=== PATIENT | female | born 1990 | race Hispanic/Latino ===

== ENCOUNTER 2018-06-27 06:19 | Emergency (ER) | payer OTHER ==
[2018-06-27 06:42] VITALS: BP 118/77
[2018-06-27] MEDS ORDERED: FLEXERIL PO ONE (07:34)
[2018-06-27] MEDS ORDERED: TORADOL IM ONE (07:34)
[2018-06-27] MEDS ORDERED: DELTASONE PO ONE (07:34)
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
--- NOTE | 2018-06-27 09:02 | XRay Report ---
BILATERAL RIBS: History: Chest pain. Routine views of the rib cage demonstrate normal mineralization with no significant contour abnormalities, fractures or destructive lesions. PA view of the chest demonstrates no underlying cardiopulmonary abnormalities, fluid or pneumothorax. IMPRESSION: Normal bilateral ribs.
== END 2018-06-27 09:31 | disposition home or self-care (01) ==
LOC: ED 06:19
DX: M79.18 Myalgia, other site (principal); R07.81 Pleurodynia; J45.909 Unspecified asthma, uncomplicated; V49.49XA Driver injured in collision with other motor vehicles in traffic accident, initial encounter; Y93.89 Activity, other specified; Y92.488 Other paved roadways as the place of occurrence of the external cause; Y99.8 Other external cause status
CPT/HCPCS: 71110; 96372; 99283; J1885; J7512

== ENCOUNTER 2018-07-07 04:28 | Inpatient (IN) | payer SELFPAY ==
[~2018-07-07 04:28] MED LIST: NACL 0.9% 1000 ML 1,000 ML IV SCH
[2018-07-07] MEDS ORDERED: NACL 0.9% 1000 ML 1,000 ML IV ONE ×3 (05:07→19:06)
[2018-07-07] MEDS ORDERED: LEVALBUTEROL IH ONE (05:10)
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
[2018-07-07 05:45] LABS: Bilirubin,Urine NEG (Negative); Blood,Urine NEG (Negative); Color,Urine Yellow (Yellow); Mucus,Urine FEW /HPF; Urobilinogen,Urine < 2.0 mg/dL (<2.0)
[2018-07-07 05:54] LABS: Hemoglobin 12.2 gm/dl (10.1-14.3); Mean Corpuscular HGB Conc 31 % (30-34); Mean Corpuscular Volume 89 fl (79-97); Platelet Count 377 K/mm3 (140-440); Red Cell Distribution Width 14.4 % (13.2-15.2)
[2018-07-07 05:57] LABS: BUN/Creatinine Ratio 3; Blood Urea Nitrogen 3 mg/dL (7-17); Calcium 9.3 mg/dL (8.4-10.2); Hemolysis Index 0
[2018-07-07] MEDS ORDERED: ATIVAN IV ONE (06:15)
[2018-07-07] MEDS ORDERED: D50W (25GM) Syringe IV PRN (06:15)
[2018-07-07] MEDS ORDERED: NACL 0.9% 1000 ML IV ONE (06:17)
[2018-07-07] MEDS ORDERED: ROCEPHIN/NS 1 GM/50 ML 1 GM/50 ML BAG IV ONE (06:18)
[2018-07-07] MEDS ORDERED: ATIVAN ONE (06:19)
--- NOTE | 2018-07-07 06:25 | XRay Report ---
FINAL REPORT PROCEDURE: XR CHEST 1V AP TECHNIQUE: Chest radiograph anteroposterior view. CPT 52500 HISTORY: SOB COMPARISON: No prior studies are available for comparison. FINDINGS: Heart: Normal. Mediastinum/Vessels: Normal. Lungs/Pleural space: There is a right perihilar infiltrate. The lungs are expanded. There are no effu sions or pneumothoraces.. Bony thorax: No acute osseous abnormality. Life support devices: None. IMPRESSION: The heart size is normal.. There is a right perihilar infiltrate. The lungs are expanded. There are no effusions or pneumothorac es..
[2018-07-07] MEDS ORDERED: SODIUM BICARBONATE IV ONE ×2 (06:35)
[2018-07-07] MEDS ORDERED: SODIUM BICARBONATE 150 MEQ in D5W 1,000 ML IV ONE ×2 (06:35→17:00)
[2018-07-07] MEDS: HumuLIN R 100 UNITS in NACL 0.9% 99 ML IV SCH ×2 (06:47→10:52)
[2018-07-07] MEDS ORDERED: MAXIPIME/NS 2 GM/100 ML 2 GM/100 ML BAG IV ONE (06:50)
--- NOTE | 2018-07-07 07:07 | Cat Scan Report ---
FINAL REPORT PROCEDURE: CT ANGIO CHEST TECHNIQUE: Computerized tomographic angiography of the chest was performed after the IV injection of iodinated nonionic contrast including image processing. The image data was postprocessed using 2-dim ensional multiplanar reformatted (MPR) and 3-dimensional (MIP and/or volume rendered) techniques. HISTORY: SOB, elevated dimer COMPARISON: No prior studies are available for comparison. FINDINGS: Heart and pericardium: Normal. Thoracic aorta: There is no thoracic aortic aneurysm or dissection.. Pulmonary vasculature: There is no pulmonary embolism.. Lymph nodes: There is reactive right hilar adenopathy. Mass considered unlikely but not excluded.. Lungs: There are right perihilar infiltrates suggesting focal pneumonitis. Right hilar mass considere d less likely but not excluded. Follow-up may be indicated. The lungs are expanded.. Pleural space: There is no pneumothorax. There is no pleural effusion.. Musculoskeletal structures: No significant abnormality. Upper abdominal structures: No significant abnormality. IMPRESSION: The heart size is normal. There is no thoracic aortic aneurysm or dissection.. There is no pulmonary embolism.. There is reactive right hilar adenopathy. Mass considered unlikely but not excluded.. There are right perihilar infiltrates suggesting focal pneumonitis. Right hilar mass considered less likely but not excluded. Follow-up may be indicated. The lungs are expanded.. There is no pneumothorax. There is no pleural effusion..
[2018-07-07 07:15] LABS: Anisocytosis 1+; Band Neutrophils # (Manual) 3.5 K/mm3; Basophils % (Manual) 0 % (0.0-1.8); Myelocytes # (Manual) 0.8 K/mm3; Total Cells Counted 100
[2018-07-07 07:45] LABS: BUN/Creatinine Ratio 4; Blood Urea Nitrogen 3 mg/dL (7-17); Calcium 8.7 mg/dL (8.4-10.2); Hemolysis Index 6
[2018-07-07] MEDS ORDERED: NACL 0.9% 1000 ML 1,000 ML ONE ×2 (08:24→17:39)
[2018-07-07 08:45] LABS: BUN/Creatinine Ratio 4; Blood Urea Nitrogen 3 mg/dL (7-17); Calcium 8.7 mg/dL (8.4-10.2); Hemolysis Index 20
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
[2018-07-07 10:46] LABS: BUN/Creatinine Ratio 3; Blood Urea Nitrogen 2 mg/dL (7-17); Calcium 8.6 mg/dL (8.4-10.2); Hemolysis Index 9
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
[2018-07-07] MEDS ORDERED: NACL 0.9% 1000 ML 1,000 ML IV SCH (12:00)
[2018-07-07] MEDS ORDERED: SODIUM BICARBONATE 50 MEQ in NACL 0.9% 1000 ML 1,000 ML IV SCH (12:00)
[2018-07-07 12:58] LABS: BUN/Creatinine Ratio 5; Blood Urea Nitrogen 3 mg/dL (7-17); Calcium 7.9 mg/dL (8.4-10.2); Hemolysis Index 6
[2018-07-07] MEDS ORDERED: ZITHROMAX 500 MG in NACL 0.9% 250ML 250 ML IV SCH (13:00)
[2018-07-07] MEDS: D5W/0.45% NACL/KCL 20 MEQ 20 MEQ/1,000 ML BAG IV SCH ×2 (13:54→22:06)
[2018-07-07] MEDS ORDERED: TYLENOL ONE (15:26)
[2018-07-07] MEDS ORDERED: KCL 20 MEQ in D5NS 0.2% 1,000 ML IV SCH (16:00)
[2018-07-07] MEDS: DUONEB *Not for PRN Use IH SCH ×2 (16:17→19:23)
[2018-07-07 17:53] LABS: BUN/Creatinine Ratio 4; Blood Urea Nitrogen 2 mg/dL (7-17); Calcium 7.7 mg/dL (8.4-10.2); Hemolysis Index 3
[2018-07-07] MEDS ORDERED: K-DUR PO SCH (19:00)
[2018-07-07] MEDS ORDERED: K-DUR PO ONE (19:34)
[2018-07-07] MEDS: KCL 10MEQ/100ML 10 MEQ/100 ML BAG IV SCH ×3 (20:44→23:15)
[2018-07-07 22:53] LABS: BUN/Creatinine Ratio 4; Blood Urea Nitrogen 2 mg/dL (7-17); Calcium 7.5 mg/dL (8.4-10.2); Hemolysis Index 44
[2018-07-08] MEDS: TYLENOL PO PRN ×3 (01:21→22:15)
[2018-07-08] MEDS: DUONEB *Not for PRN Use IH SCH ×5 (02:19→20:22)
[2018-07-08] MEDS ORDERED: NACL 0.9% 1000 ML 1,000 ML IV ONE (03:31)
[2018-07-08 05:19] LABS: Hematocrit 32.4 % (30.3-42.9); Hemoglobin 10.4 gm/dl (10.1-14.3); Mean Corpuscular HGB Conc 32 % (30-34); Mean Corpuscular Volume 86 fl (79-97); Platelet Count 259 K/mm3 (140-440); Red Blood Count 3.76 M/mm3 (3.65-5.03); Red Cell Distribution Width 13.5 % (13.2-15.2)
[2018-07-08 05:42] LABS: BUN/Creatinine Ratio 3; Blood Urea Nitrogen < 1 mg/dL (7-17); Hemolysis Index 21
[2018-07-08] MEDS: D5W/0.45% NACL/KCL 20 MEQ 20 MEQ/1,000 ML BAG IV SCH (06:20)
[2018-07-08 06:53] LABS: Band Neutrophils # (Manual) 3.7 K/mm3; Basophils % (Manual) 0 % (0.0-1.8); Eosinophils % (Manual) 0 % (0.0-4.3); Total Cells Counted 100
[2018-07-08 06:54] LABS: Anisocytosis 1+; Platelet Estimate Consistent w Auto
[2018-07-08] MEDS ORDERED: K-DUR PO ONE ×2 (08:00)
[2018-07-08] MEDS ORDERED: ROCEPHIN/NS 1 GM/50 ML 1 GM/50 ML BAG IV SCH (10:00)
--- NOTE | 2018-07-08 12:00 | Progress Note ---
Assessment and Plan DKA - -admitted to ICU, placed on DKA protocol - placed on insulin drip and monitored blood glucose every hour - given IV fluid hydration with bicarbonate drip due to severe acidosis - BG much improved today, will start on diet and will stop insulin drip, transitioned to subqu insulin SIRS, source of infection unknown - cont to spike fever, change abx to vanc and zosyn Severe hypokalemia and hypomagnesemia - replete, and monitor Dvt px, lovenox Subjective Date of service: 07/08/18 Interval history: pt seen and examined spiked fever this am wants to eat, denies chest pain, still has cough Objective - Constitutional Vitals: Vital Signs - 12hr 07/08/18 07/08/18 07/08/18 01:00 01:21 02:21 Temperature 103.8 F H Pulse Rate Pulse Rate [ 126 H Bilateral Lower Lobe] Respiratory 20 Rate Respiratory 24 Rate [Bilateral Lower Lobe] Blood Pressure O2 Sat by Pulse Oximetry 07/08/18 07/08/18 07/08/18 02:36 03:07 04:18 Temperature 102.8 F H Pulse Rate 130 H Pulse Rate [ 127 H Bilateral Lower Lobe] Respiratory 22 Rate Respiratory 24 Rate [Bilateral Lower Lobe] Blood Pressure 119/76 O2 Sat by Pulse 96 Oximetry 07/08/18 07/08/18 07/08/18 04:20 04:22 04:23 Temperature Pulse Rate 131 H 129 H 130 H Pulse Rate [ Bilateral Lower Lobe] Respiratory 21 19 19 Rate Respiratory Rate [Bilateral Lower Lobe] Blood Pressure 119/76 119/76 119/76 O2 Sat by Pulse 96 97 95 Oximetry 07/08/18 07/08/18 07/08/18 04:24 04:26 04:27 Temperature Pulse Rate 131 H 135 H 136 H Pulse Rate [ Bilateral Lower Lobe] Respiratory 17 20 20 Rate Respiratory Rate [Bilateral Lower Lobe] Blood Pressure 119/76 119/76 119/76 O2 Sat by Pulse 95 94 96 Oximetry 07/08/18 07/08/18 07/08/18 04:28 04:35 04:36 Temperature Pulse Rate 137 H 136 H 135 H Pulse Rate [ Bilateral Lower Lobe] Respiratory 19 19 23 Rate Respiratory Rate [Bilateral Lower Lobe] Blood Pressure 119/76 119/76 119/76 O2 Sat by Pulse 95 94 97 Oximetry 07/08/18 07/08/18 07/08/18 04:38 04:40 04:42 Temperature Pulse Rate 132 H 131 H 130 H Pulse Rate [ Bilateral Lower Lobe] Respiratory 21 17 24 Rate Respiratory Rate [Bilateral Lower Lobe] Blood Pressure 119/76 119/76 119/76 O2 Sat by Pulse 97 99 97 Oximetry 07/08/18 07/08/18 07/08/18 04:44 04:46 04:48 Temperature Pulse Rate 131 H 130 H 129 H Pulse Rate [ Bilateral Lower Lobe] Respiratory 21 24 24 Rate Respiratory Rate [Bilateral Lower Lobe] Blood Pressure 119/76 119/76 119/76 O2 Sat by Pulse 98 100 99 Oximetry 07/08/18 07/08/18 07/08/18 04:50 04:52 04:54 Temperature Pulse Rate 130 H 129 H 129 H Pulse Rate [ Bilateral Lower Lobe] Respiratory 26 H 24 28 H Rate Respiratory Rate [Bilateral Lower Lobe] Blood Pressure 119/76 119/76 119/76 O2 Sat by Pulse 97 98 99 Oximetry 07/08/18 07/08/18 07/08/18 04:56 04:58 05:00 Temperature Pulse Rate 128 H 128 H 129 H Pulse Rate [ Bilateral Lower Lobe] Respiratory 28 H 30 H 25 H Rate Respiratory Rate [Bilateral Lower Lobe] Blood Pressure 119/76 119/76 109/66 O2 Sat by Pulse 99 99 98 Oximetry 07/08/18 07/08/18 07/08/18 05:02 05:04 05:06 Temperature Pulse Rate 127 H 128 H 127 H Pulse Rate [ Bilateral Lower Lobe] Respiratory 27 H 30 H 20 Rate Respiratory Rate [Bilateral Lower Lobe] Blood Pressure 109/66 109/66 109/66 O2 Sat by Pulse 98 99 98 Oximetry 07/08/18 07/08/18 07/08/18 05:08 05:10 05:12 Temperature Pulse Rate 125 H 127 H 128 H Pulse Rate [ Bilateral Lower Lobe] Respiratory 22 21 24 Rate Respiratory Rate [Bilateral Lower Lobe] Blood Pressure 109/66 109/66 109/66 O2 Sat by Pulse 98 98 97 Oximetry 07/08/18 07/08/18 07/08/18 05:14 05:16 05:18 Temperature Pulse Rate 129 H 128 H 126 H Pulse Rate [ Bilateral Lower Lobe] Respiratory 22 21 21 Rate Respiratory Rate [Bilateral Lower Lobe] Blood Pressure 109/66 109/66 109/66 O2 Sat by Pulse 98 97 97 Oximetry 07/08/18 07/08/18 07/08/18 05:20 05:22 05:24 Temperature Pulse Rate 139 H 136 H 133 H Pulse Rate [ Bilateral Lower Lobe] Respiratory 25 H 27 H 24 Rate Respiratory Rate [Bilateral Lower Lobe] Blood Pressure 109/66 109/66 109/66 O2 Sat by Pulse 98 96 98 Oximetry 07/08/18 07/08/18 07/08/18 05:26 05:28 05:30 Temperature Pulse Rate 132 H 131 H 131 H Pulse Rate [ Bilateral Lower Lobe] Respiratory 24 24 27 H Rate Respiratory Rate [Bilateral Lower Lobe] Blood Pressure 109/66 109/66 110/68 O2 Sat by Pulse 98 99 98 Oximetry 07/08/18 07/08/18 07/08/18 05:32 05:34 05:36 Temperature Pulse Rate 131 H 130 H 129 H Pulse Rate [ Bilateral Lower Lobe] Respiratory 31 H 26 H 25 H Rate Respiratory Rate [Bilateral Lower Lobe] Blood Pressure 110/68 110/68 110/68 O2 Sat by Pulse 98 98 98 Oximetry 07/08/18 07/08/18 07/08/18 05:38 05:40 05:42 Temperature Pulse Rate 128 H 129 H 130 H Pulse Rate [ Bilateral Lower Lobe] Respiratory 21 26 H 28 H Rate Respiratory Rate [Bilateral Lower Lobe] Blood Pressure 110/68 110/68 110/68 O2 Sat by Pulse 99 98 98 Oximetry 07/08/18 07/08/18 07/08/18 05:44 05:46 05:48 Temperature Pulse Rate 130 H 131 H 129 H Pulse Rate [ Bilateral Lower Lobe] Respiratory 23 24 26 H Rate Respiratory Rate [Bilateral Lower Lobe] Blood Pressure 110/68 110/68 110/68 O2 Sat by Pulse 96 97 97 Oximetry 07/08/18 07/08/18 07/08/18 05:50 05:52 05:54 Temperature Pulse Rate 130 H 135 H 134 H Pulse Rate [ Bilateral Lower Lobe] Respiratory 26 H 17 23 Rate Respiratory Rate [Bilateral Lower Lobe] Blood Pressure 110/68 110/68 110/68 O2 Sat by Pulse 97 96 97 Oximetry 07/08/18 07/08/18 07/08/18 05:56 05:58 06:00 Temperature Pulse Rate 131 H 130 H 131 H Pulse Rate [ Bilateral Lower Lobe] Respiratory 30 H 26 H 26 H Rate Respiratory Rate [Bilateral Lower Lobe] Blood Pressure 110/68 110/68 111/67 O2 Sat by Pulse 97 99 Oximetry 07/08/18 07/08/18 07/08/18 06:02 06:04 06:06 Temperature Pulse Rate 134 H 132 H 131 H Pulse Rate [ Bilateral Lower Lobe] Respiratory 28 H 24 30 H Rate Respiratory Rate [Bilateral Lower Lobe] Blood Pressure 111/67 111/67 111/67 O2 Sat by Pulse 97 97 97 Oximetry 07/08/18 07/08/18 07/08/18 06:08 06:10 06:12 Temperature Pulse Rate 129 H 129 H 130 H Pulse Rate [ Bilateral Lower Lobe] Respiratory 27 H 25 H 25 H Rate Respiratory Rate [Bilateral Lower Lobe] Blood Pressure 111/67 111/67 111/67 O2 Sat by Pulse 97 97 97 Oximetry 07/08/18 07/08/18 07/08/18 06:14 06:16 06:18 Temperature Pulse Rate 130 H 132 H 131 H Pulse Rate [ Bilateral Lower Lobe] Respiratory 26 H 26 H 23 Rate Respiratory Rate [Bilateral Lower Lobe] Blood Pressure 111/67 111/67 111/67 O2 Sat by Pulse 97 97 97 Oximetry 07/08/18 07/08/18 07/08/18 06:20 06:22 06:24 Temperature Pulse Rate 131 H 130 H 129 H Pulse Rate [ Bilateral Lower Lobe] Respiratory 25 H 25 H 24 Rate Respiratory Rate [Bilateral Lower Lobe] Blood Pressure 111/67 111/67 111/67 O2 Sat by Pulse 98 97 97 Oximetry 07/08/18 07/08/18 07/08/18 06:26 06:28 06:30 Temperature Pulse Rate 128 H 134 H 132 H Pulse Rate [ Bilateral Lower Lobe] Respiratory 21 25 H 23 Rate Respiratory Rate [Bilateral Lower Lobe] Blood Pressure 111/67 111/67 117/68 O2 Sat by Pulse 96 97 96 Oximetry 07/08/18 07/08/18 07/08/18 06:32 06:34 06:36 Temperature Pulse Rate 130 H 132 H 128 H Pulse Rate [ Bilateral Lower Lobe] Respiratory 28 H 25 H 22 Rate Respiratory Rate [Bilateral Lower Lobe] Blood Pressure 117/68 117/68 117/68 O2 Sat by Pulse 97 96 98 Oximetry 07/08/18 07/08/18 07/08/18 06:38 06:40 06:42 Temperature Pulse Rate 129 H 131 H 129 H Pulse Rate [ Bilateral Lower Lobe] Respiratory 29 H 23 22 Rate Respiratory Rate [Bilateral Lower Lobe] Blood Pressure 117/68 117/68 117/68 O2 Sat by Pulse 97 97 97 Oximetry 07/08/18 07/08/18 07/08/18 06:44 06:46 06:48 Temperature Pulse Rate 128 H 128 H 129 H Pulse Rate [ Bilateral Lower Lobe] Respiratory 24 23 27 H Rate Respiratory Rate [Bilateral Lower Lobe] Blood Pressure 117/68 117/68 117/68 O2 Sat by Pulse 97 97 96 Oximetry 07/08/18 07/08/18 07/08/18 06:50 06:52 06:54 Temperature Pulse Rate 128 H 129 H 133 H Pulse Rate [ Bilateral Lower Lobe] Respiratory 23 22 16 Rate Respiratory Rate [Bilateral Lower Lobe] Blood Pressure 117/68 117/68 117/68 O2 Sat by Pulse 98 97 96 Oximetry 07/08/18 07/08/18 07/08/18 06:56 06:58 07:00 Temperature Pulse Rate 133 H 131 H 132 H Pulse Rate [ Bilateral Lower Lobe] Respiratory 22 24 23 Rate Respiratory Rate [Bilateral Lower Lobe] Blood Pressure 117/68 117/68 116/68 O2 Sat by Pulse 96 96 Oximetry 07/08/18 07/08/18 07/08/18 07:02 07:04 07:06 Temperature Pulse Rate 134 H 131 H 130 H Pulse Rate [ Bilateral Lower Lobe] Respiratory 25 H 23 22 Rate Respiratory Rate [Bilateral Lower Lobe] Blood Pressure 111/67 111/67 111/67 O2 Sat by Pulse 97 97 96 Oximetry 07/08/18 07/08/18 07/08/18 07:08 07:10 07:12 Temperature Pulse Rate 131 H 129 H 128 H Pulse Rate [ Bilateral Lower Lobe] Respiratory 21 22 21 Rate Respiratory Rate [Bilateral Lower Lobe] Blood Pressure 111/67 111/67 111/67 O2 Sat by Pulse 97 97 96 Oximetry 07/08/18 07/08/18 07/08/18 07:14 07:16 07:18 Temperature Pulse Rate 130 H 131 H 128 H Pulse Rate [ Bilateral Lower Lobe] Respiratory 24 26 H 24 Rate Respiratory Rate [Bilateral Lower Lobe] Blood Pressure 111/67 111/67 111/67 O2 Sat by Pulse 98 97 97 Oximetry 07/08/18 07/08/18 07/08/18 07:20 07:22 07:24 Temperature Pulse Rate 129 H 127 H 132 H Pulse Rate [ Bilateral Lower Lobe] Respiratory 25 H 25 H 20 Rate Respiratory Rate [Bilateral Lower Lobe] Blood Pressure 111/67 111/67 111/67 O2 Sat by Pulse 97 97 97 Oximetry 07/08/18 07/08/18 07/08/18 07:52 08:00 11:52 Temperature 102.8 F H 99.5 F Pulse Rate Pulse Rate [ 138 H Bilateral Lower Lobe] Respiratory Rate Respiratory 20 Rate [Bilateral Lower Lobe] Blood Pressure O2 Sat by Pulse Oximetry General appearance: Present: no acute distress, well-nourished - EENT Eyes: PERRL, EOM intact ENT: hearing intact, clear oral mucosa Ears: bilateral: normal - Neck Neck: supple, normal ROM - Respiratory Respiratory effort: normal Respiratory: bilateral: CTA - Cardiovascular Rhythm: regular Heart Sounds: Present: S1 & S2. Absent: gallop, rub Extremities: pulses intact, No edema, normal color, Full ROM - Gastrointestinal General gastrointestinal: Present: soft, non-tender, non-distended, normal bowel sounds - Integumentary Integumentary: clear, warm, dry - Musculoskeletal Musculoskeletal: 1, strength equal bilaterally - Neurologic Neurologic: moves all extremities - Psychiatric Psychiatric: memory intact, appropriate mood/affect, intact judgment & insight - Labs CBC & Chem 7: 07/09/18 04:25 07/09/18 04:25 Labs: Abnormal lab results 07/07/18 07/07/18 07/07/18 Range/Units 12:02 12:16 13:09 WBC (4.5-11.0) K/mm3 Lymphocytes % (Manual) (13.4-35.0) % Monocytes % (Manual) (0.0-7.3) % Lymphocytes # (Manual) (1.2-5.4) K/mm3 Monocytes # (Manual) (0.0-0.8) K/mm3 POC ABG pCO2 (35-45) POC ABG pO2 (80-105) Potassium (3.6-5.0) mmol/L Chloride 114.3 H (98-107) mmol/L Carbon Dioxide (22-30) mmol/L BUN 3 L (7-17) mg/dL Creatinine 0.6 L (0.7-1.2) mg/dL Glucose 153 H (65-100) mg/dL POC Glucose 268 H 197 H (70-105) Calcium 7.9 L (8.4-10.2) mg/dL Magnesium (1.7-2.3) mg/dL 07/07/18 07/07/18 07/07/18 Range/Units 14:29 16:33 16:36 WBC (4.5-11.0) K/mm3 Lymphocytes % (Manual) (13.4-35.0) % Monocytes % (Manual) (0.0-7.3) % Lymphocytes # (Manual) (1.2-5.4) K/mm3 Monocytes # (Manual) (0.0-0.8) K/mm3 POC ABG pCO2 16.5 L (35-45) POC ABG pO2 (80-105) Potassium (3.6-5.0) mmol/L Chloride (98-107) mmol/L Carbon Dioxide (22-30) mmol/L BUN (7-17) mg/dL Creatinine (0.7-1.2) mg/dL Glucose (65-100) mg/dL POC Glucose 144 H 208 H (70-105) Calcium (8.4-10.2) mg/dL Magnesium (1.7-2.3) mg/dL 07/07/18 07/07/18 07/07/18 Range/Units 16:46 17:34 18:50 WBC (4.5-11.0) K/mm3 Lymphocytes % (Manual) (13.4-35.0) % Monocytes % (Manual) (0.0-7.3) % Lymphocytes # (Manual) (1.2-5.4) K/mm3 Monocytes # (Manual) (0.0-0.8) K/mm3 POC ABG pCO2 (35-45) POC ABG pO2 (80-105) Potassium 2.4 L* D (3.6-5.0) mmol/L Chloride 107.3 H (98-107) mmol/L Carbon Dioxide 12 L D (22-30) mmol/L BUN 2 L (7-17) mg/dL Creatinine 0.5 L (0.7-1.2) mg/dL Glucose 208 H (65-100) mg/dL POC Glucose 217 H 202 H (70-105) Calcium 7.7 L (8.4-10.2) mg/dL Magnesium (1.7-2.3) mg/dL 02/02/19 02/02/19 02/02/19 Range/Units 19:51 21:05 21:59 WBC (4.5-11.0) K/mm3 Lymphocytes % (Manual) (13.4-35.0) % Monocytes % (Manual) (0.0-7.3) % Lymphocytes # (Manual) (1.2-5.4) K/mm3 Monocytes # (Manual) (0.0-0.8) K/mm3 POC ABG pCO2 (35-45) POC ABG pO2 (80-105) Potassium (3.6-5.0) mmol/L Chloride (98-107) mmol/L Carbon Dioxide (22-30) mmol/L BUN (7-17) mg/dL Creatinine (0.7-1.2) mg/dL Glucose (65-100) mg/dL POC Glucose 199 H 169 H 179 H (70-105) Calcium (8.4-10.2) mg/dL Magnesium (1.7-2.3) mg/dL 07/07/18 07/07/18 07/08/18 Range/Units 22:12 23:12 00:05 WBC (4.5-11.0) K/mm3 Lymphocytes % (Manual) (13.4-35.0) % Monocytes % (Manual) (0.0-7.3) % Lymphocytes # (Manual) (1.2-5.4) K/mm3 Monocytes # (Manual) (0.0-0.8) K/mm3 POC ABG pCO2 (35-45) POC ABG pO2 (80-105) Potassium 2.9 L* D (3.6-5.0) mmol/L Chloride 107.1 H (98-107) mmol/L Carbon Dioxide 12 L (22-30) mmol/L BUN 2 L (7-17) mg/dL Creatinine 0.5 L (0.7-1.2) mg/dL Glucose 165 H (65-100) mg/dL POC Glucose 191 H 192 H (70-105) Calcium 7.5 L (8.4-10.2) mg/dL Magnesium (1.7-2.3) mg/dL 07/08/18 07/08/18 07/08/18 Range/Units 01:23 02:05 02:42 WBC (4.5-11.0) K/mm3 Lymphocytes % (Manual) (13.4-35.0) % Monocytes % (Manual) (0.0-7.3) % Lymphocytes # (Manual) (1.2-5.4) K/mm3 Monocytes # (Manual) (0.0-0.8) K/mm3 POC ABG pCO2 27.4 L (35-45) POC ABG pO2 165 H (80-105) Potassium (3.6-5.0) mmol/L Chloride (98-107) mmol/L Carbon Dioxide (22-30) mmol/L BUN (7-17) mg/dL Creatinine (0.7-1.2) mg/dL Glucose (65-100) mg/dL POC Glucose 165 H 112 H (70-105) Calcium (8.4-10.2) mg/dL Magnesium (1.7-2.3) mg/dL 07/08/18 07/08/18 07/08/18 Range/Units 03:03 04:20 04:40 WBC 11.1 H (4.5-11.0) K/mm3 Lymphocytes % (Manual) 8.0 L (13.4-35.0) % Monocytes % (Manual) 12.0 H (0.0-7.3) % Lymphocytes # (Manual) 0.9 L (1.2-5.4) K/mm3 Monocytes # (Manual) 1.3 H (0.0-0.8) K/mm3 POC ABG pCO2 (35-45) POC ABG pO2 (80-105) Potassium (3.6-5.0) mmol/L Chloride (98-107) mmol/L Carbon Dioxide (22-30) mmol/L BUN (7-17) mg/dL Creatinine (0.7-1.2) mg/dL Glucose (65-100) mg/dL POC Glucose 119 H 144 H (70-105) Calcium (8.4-10.2) mg/dL Magnesium (1.7-2.3) mg/dL 07/08/18 07/08/18 07/08/18 Range/Units 04:40 05:49 06:56 WBC (4.5-11.0) K/mm3 Lymphocytes % (Manual) (13.4-35.0) % Monocytes % (Manual) (0.0-7.3) % Lymphocytes # (Manual) (1.2-5.4) K/mm3 Monocytes # (Manual) (0.0-0.8) K/mm3 POC ABG pCO2 (35-45) POC ABG pO2 (80-105) Potassium 2.7 L* (3.6-5.0) mmol/L Chloride 108.5 H (98-107) mmol/L Carbon Dioxide 15 L (22-30) mmol/L BUN < 1 L (7-17) mg/dL Creatinine 0.4 L (0.7-1.2) mg/dL Glucose 139 H (65-100) mg/dL POC Glucose 142 H 162 H (70-105) Calcium 7.0 L (8.4-10.2) mg/dL Magnesium (1.7-2.3) mg/dL 07/08/18 Range/Units 08:20 WBC (4.5-11.0) K/mm3 Lymphocytes % (Manual) (13.4-35.0) % Monocytes % (Manual) (0.0-7.3) % Lymphocytes # (Manual) (1.2-5.4) K/mm3 Monocytes # (Manual) (0.0-0.8) K/mm3 POC ABG pCO2 (35-45) POC ABG pO2 (80-105) Potassium (3.6-5.0) mmol/L Chloride (98-107) mmol/L Carbon Dioxide (22-30) mmol/L BUN (7-17) mg/dL Creatinine (0.7-1.2) mg/dL Glucose (65-100) mg/dL POC Glucose (70-105) Calcium (8.4-10.2) mg/dL Magnesium 1.10 L (1.7-2.3) mg/dL
[2018-07-08] MEDS ORDERED: NACL 0.9% 1000 ML 1,000 ML ONE (12:22)
[2018-07-08] MEDS: K-DUR PO SCH (12:32)
[2018-07-08] MEDS: VANCOMYCIN/NS 1 GM/250 ML 1 GM/250 ML BAG IV SCH (12:41)
[2018-07-08] MEDS ORDERED: MAGNESIUM SULFATE IV ONE (13:00)
--- NOTE | 2018-07-08 13:05 | Progress Note ---
Assessment and Plan 28 y/o female with severe metabolic acidosis secondary to DKA 1. Ok to discontinue bicarb drip, this was done by pharmacy prior to a disc ontinuation order from me or any other physician. 2. Clinically, patient still appears to be volume deplete. Will order more saline boluses today. 3. Spoke with IMS about abx change, at this point, patient improved with Rocephin and Azithro. Would like to descalate abx therapy back to what she was on before. 4. Can stop insulin drip and initiate long acting. Hopefully the 10 BID reflects enough insulin to cover her as she required high doses of drip on yesterday for severe metabolic acidosis. Anion Gap has closed. 5. No retained products in feminine region 6. Feed patient consistent carbohydrate diet 7. Follow up blood and urine cultures 8. Monitor in ICU 24 more hours. CCT 31 minutes. Subjective Date of service: 07/08/18 Interval history: no acute events. Shaunna spike a temp last night but had already been cultured. White count has improved and overall clinical state is better. IMS changed abx therapy this as secondary to fever, despite clinical improvement. Objective - Constitutional Vitals: Vital Signs - 12hr 07/08/18 07/08/18 07/08/18 01:21 02:21 02:36 Temperature Pulse Rate Pulse Rate [ 126 H 127 H Bilateral Lower Lobe] Respiratory 20 Rate Respiratory 24 24 Rate [Bilateral Lower Lobe] Blood Pressure O2 Sat by Pulse Oximetry 07/08/18 07/08/18 07/08/18 03:07 04:18 04:20 Temperature 102.8 F H Pulse Rate 130 H 131 H Pulse Rate [ Bilateral Lower Lobe] Respiratory 22 21 Rate Respiratory Rate [Bilateral Lower Lobe] Blood Pressure 119/76 119/76 O2 Sat by Pulse 96 96 Oximetry 07/08/18 07/08/18 07/08/18 04:22 04:23 04:24 Temperature Pulse Rate 129 H 130 H 131 H Pulse Rate [ Bilateral Lower Lobe] Respiratory 19 19 17 Rate Respiratory Rate [Bilateral Lower Lobe] Blood Pressure 119/76 119/76 119/76 O2 Sat by Pulse 97 95 95 Oximetry 07/08/18 07/08/18 07/08/18 04:26 04:27 04:28 Temperature Pulse Rate 135 H 136 H 137 H Pulse Rate [ Bilateral Lower Lobe] Respiratory 20 20 19 Rate Respiratory Rate [Bilateral Lower Lobe] Blood Pressure 119/76 119/76 119/76 O2 Sat by Pulse 94 96 95 Oximetry 07/08/18 07/08/18 07/08/18 04:35 04:36 04:38 Temperature Pulse Rate 136 H 135 H 132 H Pulse Rate [ Bilateral Lower Lobe] Respiratory 19 23 21 Rate Respiratory Rate [Bilateral Lower Lobe] Blood Pressure 119/76 119/76 119/76 O2 Sat by Pulse 94 97 97 Oximetry 07/08/18 07/08/18 07/08/18 04:40 04:42 04:44 Temperature Pulse Rate 131 H 130 H 131 H Pulse Rate [ Bilateral Lower Lobe] Respiratory 17 24 21 Rate Respiratory Rate [Bilateral Lower Lobe] Blood Pressure 119/76 119/76 119/76 O2 Sat by Pulse 99 97 98 Oximetry 07/08/18 07/08/18 07/08/18 04:46 04:48 04:50 Temperature Pulse Rate 130 H 129 H 130 H Pulse Rate [ Bilateral Lower Lobe] Respiratory 24 24 26 H Rate Respiratory Rate [Bilateral Lower Lobe] Blood Pressure 119/76 119/76 119/76 O2 Sat by Pulse 100 99 97 Oximetry 07/08/18 07/08/18 07/08/18 04:52 04:54 04:56 Temperature Pulse Rate 129 H 129 H 128 H Pulse Rate [ Bilateral Lower Lobe] Respiratory 24 28 H 28 H Rate Respiratory Rate [Bilateral Lower Lobe] Blood Pressure 119/76 119/76 119/76 O2 Sat by Pulse 98 99 99 Oximetry 07/08/18 07/08/18 07/08/18 04:58 05:00 05:02 Temperature Pulse Rate 128 H 129 H 127 H Pulse Rate [ Bilateral Lower Lobe] Respiratory 30 H 25 H 27 H Rate Respiratory Rate [Bilateral Lower Lobe] Blood Pressure 119/76 109/66 109/66 O2 Sat by Pulse 99 98 98 Oximetry 07/08/18 07/08/18 07/08/18 05:04 05:06 05:08 Temperature Pulse Rate 128 H 127 H 125 H Pulse Rate [ Bilateral Lower Lobe] Respiratory 30 H 20 22 Rate Respiratory Rate [Bilateral Lower Lobe] Blood Pressure 109/66 109/66 109/66 O2 Sat by Pulse 99 98 98 Oximetry 07/08/18 07/08/18 07/08/18 05:10 05:12 05:14 Temperature Pulse Rate 127 H 128 H 129 H Pulse Rate [ Bilateral Lower Lobe] Respiratory 21 24 22 Rate Respiratory Rate [Bilateral Lower Lobe] Blood Pressure 109/66 109/66 109/66 O2 Sat by Pulse 98 97 98 Oximetry 07/08/18 07/08/18 07/08/18 05:16 05:18 05:20 Temperature Pulse Rate 128 H 126 H 139 H Pulse Rate [ Bilateral Lower Lobe] Respiratory 21 21 25 H Rate Respiratory Rate [Bilateral Lower Lobe] Blood Pressure 109/66 109/66 109/66 O2 Sat by Pulse 97 97 98 Oximetry 07/08/18 07/08/18 07/08/18 05:22 05:24 05:26 Temperature Pulse Rate 136 H 133 H 132 H Pulse Rate [ Bilateral Lower Lobe] Respiratory 27 H 24 24 Rate Respiratory Rate [Bilateral Lower Lobe] Blood Pressure 109/66 109/66 109/66 O2 Sat by Pulse 96 98 98 Oximetry 07/08/18 07/08/18 07/08/18 05:28 05:30 05:32 Temperature Pulse Rate 131 H 131 H 131 H Pulse Rate [ Bilateral Lower Lobe] Respiratory 24 27 H 31 H Rate Respiratory Rate [Bilateral Lower Lobe] Blood Pressure 109/66 110/68 110/68 O2 Sat by Pulse 99 98 98 Oximetry 07/08/18 07/08/18 07/08/18 05:34 05:36 05:38 Temperature Pulse Rate 130 H 129 H 128 H Pulse Rate [ Bilateral Lower Lobe] Respiratory 26 H 25 H 21 Rate Respiratory Rate [Bilateral Lower Lobe] Blood Pressure 110/68 110/68 110/68 O2 Sat by Pulse 98 98 99 Oximetry 07/08/18 07/08/18 07/08/18 05:40 05:42 05:44 Temperature Pulse Rate 129 H 130 H 130 H Pulse Rate [ Bilateral Lower Lobe] Respiratory 26 H 28 H 23 Rate Respiratory Rate [Bilateral Lower Lobe] Blood Pressure 110/68 110/68 110/68 O2 Sat by Pulse 98 98 96 Oximetry 07/08/18 07/08/18 07/08/18 05:46 05:48 05:50 Temperature Pulse Rate 131 H 129 H 130 H Pulse Rate [ Bilateral Lower Lobe] Respiratory 24 26 H 26 H Rate Respiratory Rate [Bilateral Lower Lobe] Blood Pressure 110/68 110/68 110/68 O2 Sat by Pulse 97 97 97 Oximetry 02/03/19 02/03/19 02/03/19 05:52 05:54 05:56 Temperature Pulse Rate 135 H 134 H 131 H Pulse Rate [ Bilateral Lower Lobe] Respiratory 17 23 30 H Rate Respiratory Rate [Bilateral Lower Lobe] Blood Pressure 110/68 110/68 110/68 O2 Sat by Pulse 96 97 97 Oximetry 07/08/18 07/08/18 07/08/18 05:58 06:00 06:02 Temperature Pulse Rate 130 H 131 H 134 H Pulse Rate [ Bilateral Lower Lobe] Respiratory 26 H 26 H 28 H Rate Respiratory Rate [Bilateral Lower Lobe] Blood Pressure 110/68 111/67 111/67 O2 Sat by Pulse 99 97 Oximetry 07/08/18 07/08/18 07/08/18 06:04 06:06 06:08 Temperature Pulse Rate 132 H 131 H 129 H Pulse Rate [ Bilateral Lower Lobe] Respiratory 24 30 H 27 H Rate Respiratory Rate [Bilateral Lower Lobe] Blood Pressure 111/67 111/67 111/67 O2 Sat by Pulse 97 97 97 Oximetry 07/08/18 07/08/18 07/08/18 06:10 06:12 06:14 Temperature Pulse Rate 129 H 130 H 130 H Pulse Rate [ Bilateral Lower Lobe] Respiratory 25 H 25 H 26 H Rate Respiratory Rate [Bilateral Lower Lobe] Blood Pressure 111/67 111/67 111/67 O2 Sat by Pulse 97 97 97 Oximetry 07/08/18 07/08/18 07/08/18 06:16 06:18 06:20 Temperature Pulse Rate 132 H 131 H 131 H Pulse Rate [ Bilateral Lower Lobe] Respiratory 26 H 23 25 H Rate Respiratory Rate [Bilateral Lower Lobe] Blood Pressure 111/67 111/67 111/67 O2 Sat by Pulse 97 97 98 Oximetry 07/08/18 07/08/18 07/08/18 06:22 06:24 06:26 Temperature Pulse Rate 130 H 129 H 128 H Pulse Rate [ Bilateral Lower Lobe] Respiratory 25 H 24 21 Rate Respiratory Rate [Bilateral Lower Lobe] Blood Pressure 111/67 111/67 111/67 O2 Sat by Pulse 97 97 96 Oximetry 07/08/18 07/08/18 07/08/18 06:28 06:30 06:32 Temperature Pulse Rate 134 H 132 H 130 H Pulse Rate [ Bilateral Lower Lobe] Respiratory 25 H 23 28 H Rate Respiratory Rate [Bilateral Lower Lobe] Blood Pressure 111/67 117/68 117/68 O2 Sat by Pulse 97 96 97 Oximetry 07/08/18 07/08/18 07/08/18 06:34 06:36 06:38 Temperature Pulse Rate 132 H 128 H 129 H Pulse Rate [ Bilateral Lower Lobe] Respiratory 25 H 22 29 H Rate Respiratory Rate [Bilateral Lower Lobe] Blood Pressure 117/68 117/68 117/68 O2 Sat by Pulse 96 98 97 Oximetry 07/08/18 07/08/18 07/08/18 06:40 06:42 06:44 Temperature Pulse Rate 131 H 129 H 128 H Pulse Rate [ Bilateral Lower Lobe] Respiratory 23 22 24 Rate Respiratory Rate [Bilateral Lower Lobe] Blood Pressure 117/68 117/68 117/68 O2 Sat by Pulse 97 97 97 Oximetry 07/08/18 07/08/18 07/08/18 06:46 06:48 06:50 Temperature Pulse Rate 128 H 129 H 128 H Pulse Rate [ Bilateral Lower Lobe] Respiratory 23 27 H 23 Rate Respiratory Rate [Bilateral Lower Lobe] Blood Pressure 117/68 117/68 117/68 O2 Sat by Pulse 97 96 98 Oximetry 07/08/18 07/08/18 07/08/18 06:52 06:54 06:56 Temperature Pulse Rate 129 H 133 H 133 H Pulse Rate [ Bilateral Lower Lobe] Respiratory 22 16 22 Rate Respiratory Rate [Bilateral Lower Lobe] Blood Pressure 117/68 117/68 117/68 O2 Sat by Pulse 97 96 96 Oximetry 07/08/18 07/08/18 07/08/18 06:58 07:00 07:02 Temperature Pulse Rate 131 H 132 H 134 H Pulse Rate [ Bilateral Lower Lobe] Respiratory 24 23 25 H Rate Respiratory Rate [Bilateral Lower Lobe] Blood Pressure 117/68 116/68 111/67 O2 Sat by Pulse 96 97 Oximetry 07/08/18 07/08/18 07/08/18 07:04 07:06 07:08 Temperature Pulse Rate 131 H 130 H 131 H Pulse Rate [ Bilateral Lower Lobe] Respiratory 23 22 21 Rate Respiratory Rate [Bilateral Lower Lobe] Blood Pressure 111/67 111/67 111/67 O2 Sat by Pulse 97 96 97 Oximetry 07/08/18 07/08/18 07/08/18 07:10 07:12 07:14 Temperature Pulse Rate 129 H 128 H 130 H Pulse Rate [ Bilateral Lower Lobe] Respiratory 22 21 24 Rate Respiratory Rate [Bilateral Lower Lobe] Blood Pressure 111/67 111/67 111/67 O2 Sat by Pulse 97 96 98 Oximetry 07/08/18 07/08/18 07/08/18 07:16 07:18 07:20 Temperature Pulse Rate 131 H 128 H 129 H Pulse Rate [ Bilateral Lower Lobe] Respiratory 26 H 24 25 H Rate Respiratory Rate [Bilateral Lower Lobe] Blood Pressure 111/67 111/67 111/67 O2 Sat by Pulse 97 97 97 Oximetry 07/08/18 07/08/18 07/08/18 07:22 07:24 07:52 Temperature Pulse Rate 127 H 132 H Pulse Rate [ 138 H Bilateral Lower Lobe] Respiratory 25 H 20 Rate Respiratory 20 Rate [Bilateral Lower Lobe] Blood Pressure 111/67 111/67 O2 Sat by Pulse 97 97 Oximetry 07/08/18 07/08/18 07/08/18 08:00 11:06 11:08 Temperature 102.8 F H Pulse Rate 115 H 116 H Pulse Rate [ Bilateral Lower Lobe] Respiratory 28 H 30 H Rate Respiratory Rate [Bilateral Lower Lobe] Blood Pressure 100/57 100/57 O2 Sat by Pulse 96 96 Oximetry 07/08/18 07/08/18 07/08/18 11:10 11:12 11:14 Temperature Pulse Rate 116 H 116 H 116 H Pulse Rate [ Bilateral Lower Lobe] Respiratory 31 H 31 H 34 H Rate Respiratory Rate [Bilateral Lower Lobe] Blood Pressure 100/57 100/57 100/57 O2 Sat by Pulse 96 96 96 Oximetry 07/08/18 07/08/18 07/08/18 11:16 11:18 11:20 Temperature Pulse Rate 115 H 116 H 113 H Pulse Rate [ Bilateral Lower Lobe] Respiratory 30 H 19 26 H Rate Respiratory Rate [Bilateral Lower Lobe] Blood Pressure 100/57 100/57 100/57 O2 Sat by Pulse 96 97 96 Oximetry 07/08/18 07/08/18 07/08/18 11:22 11:24 11:25 Temperature Pulse Rate 113 H 113 H 113 H Pulse Rate [ Bilateral Lower Lobe] Respiratory 29 H 29 H 26 H Rate Respiratory Rate [Bilateral Lower Lobe] Blood Pressure 100/57 100/57 100/57 O2 Sat by Pulse 97 97 97 Oximetry 07/08/18 07/08/18 07/08/18 11:26 11:28 11:30 Temperature Pulse Rate 115 H 112 H 110 H Pulse Rate [ Bilateral Lower Lobe] Respiratory 25 H 24 23 Rate Respiratory Rate [Bilateral Lower Lobe] Blood Pressure 100/57 100/57 103/71 O2 Sat by Pulse 97 98 97 Oximetry 07/08/18 07/08/18 07/08/18 11:32 11:34 11:36 Temperature Pulse Rate 115 H 114 H 117 H Pulse Rate [ Bilateral Lower Lobe] Respiratory 25 H 24 28 H Rate Respiratory Rate [Bilateral Lower Lobe] Blood Pressure 103/71 103/71 103/71 O2 Sat by Pulse 97 97 97 Oximetry 07/08/18 07/08/18 07/08/18 11:37 11:38 11:40 Temperature Pulse Rate 117 H 118 H 118 H Pulse Rate [ Bilateral Lower Lobe] Respiratory 30 H 29 H 29 H Rate Respiratory Rate [Bilateral Lower Lobe] Blood Pressure 103/71 100/57 100/57 O2 Sat by Pulse 97 97 96 Oximetry 07/08/18 07/08/18 07/08/18 11:42 11:44 11:46 Temperature Pulse Rate 115 H 118 H 119 H Pulse Rate [ Bilateral Lower Lobe] Respiratory 26 H 24 27 H Rate Respiratory Rate [Bilateral Lower Lobe] Blood Pressure 100/57 100/57 100/57 O2 Sat by Pulse 97 97 97 Oximetry 07/08/18 07/08/18 07/08/18 11:48 11:50 11:52 Temperature 99.5 F Pulse Rate 120 H 116 H 121 H Pulse Rate [ Bilateral Lower Lobe] Respiratory 30 H 27 H 11 L Rate Respiratory Rate [Bilateral Lower Lobe] Blood Pressure 100/57 100/57 100/57 O2 Sat by Pulse 96 97 97 Oximetry 07/08/18 07/08/18 07/08/18 11:54 11:56 11:58 Temperature Pulse Rate 118 H 119 H 117 H Pulse Rate [ Bilateral Lower Lobe] Respiratory 26 H 13 24 Rate Respiratory Rate [Bilateral Lower Lobe] Blood Pressure 100/57 100/57 100/57 O2 Sat by Pulse 97 98 98 Oximetry 07/08/18 07/08/18 07/08/18 12:00 12:02 12:04 Temperature Pulse Rate 117 H 117 H 116 H Pulse Rate [ Bilateral Lower Lobe] Respiratory 27 H 26 H 25 H Rate Respiratory Rate [Bilateral Lower Lobe] Blood Pressure 103/75 103/75 103/75 O2 Sat by Pulse 98 98 98 Oximetry 07/08/18 07/08/18 07/08/18 12:06 12:08 12:10 Temperature Pulse Rate 118 H 116 H 116 H Pulse Rate [ Bilateral Lower Lobe] Respiratory 27 H 16 21 Rate Respiratory Rate [Bilateral Lower Lobe] Blood Pressure 103/75 103/71 103/71 O2 Sat by Pulse 98 98 98 Oximetry 07/08/18 07/08/18 07/08/18 12:12 12:14 12:16 Temperature Pulse Rate 119 H 118 H 118 H Pulse Rate [ Bilateral Lower Lobe] Respiratory 30 H 29 H 25 H Rate Respiratory Rate [Bilateral Lower Lobe] Blood Pressure 103/71 103/71 103/71 O2 Sat by Pulse 97 98 98 Oximetry 07/08/18 07/08/18 07/08/18 12:18 12:20 12:22 Temperature Pulse Rate 118 H 116 H 119 H Pulse Rate [ Bilateral Lower Lobe] Respiratory 27 H 32 H 25 H Rate Respiratory Rate [Bilateral Lower Lobe] Blood Pressure 103/71 103/71 103/71 O2 Sat by Pulse 97 97 97 Oximetry 07/08/18 07/08/18 07/08/18 12:24 12:26 12:28 Temperature Pulse Rate 119 H 120 H 119 H Pulse Rate [ Bilateral Lower Lobe] Respiratory 28 H 29 H 26 H Rate Respiratory Rate [Bilateral Lower Lobe] Blood Pressure 103/71 103/71 103/71 O2 Sat by Pulse 97 97 96 Oximetry 07/08/18 07/08/18 07/08/18 12:30 12:32 12:34 Temperature Pulse Rate 122 H 120 H 120 H Pulse Rate [ Bilateral Lower Lobe] Respiratory 22 28 H 30 H Rate Respiratory Rate [Bilateral Lower Lobe] Blood Pressure 110/76 110/76 110/76 O2 Sat by Pulse 99 97 97 Oximetry 07/08/18 07/08/18 07/08/18 12:36 12:38 12:40 Temperature Pulse Rate 118 H 118 H 119 H Pulse Rate [ Bilateral Lower Lobe] Respiratory 28 H 28 H 28 H Rate Respiratory Rate [Bilateral Lower Lobe] Blood Pressure 110/76 110/76 110/76 O2 Sat by Pulse 97 97 97 Oximetry General appearance: Present: no acute distress, disheveled, other (much more calm, less anxious, work of breathing is easier) - EENT Eyes: PERRL, EOM intact ENT: hearing intact - Neck Neck: supple, normal ROM - Respiratory Respiratory effort: normal Respiratory: bilateral: CTA - Breasts Breasts: deferred - Cardiovascular Rhythm: other (sinus tach) Extremities: no ischemia - Gastrointestinal General gastrointestinal: Present: soft, non-tender, non-distended, normal bowel sounds Rectal Exam: deferred - Genitourinary Female genitourinary: deferred - Integumentary Integumentary: warm, dry - Musculoskeletal Musculoskeletal: generalized weakness - Labs CBC & Chem 7: 07/08/18 04:40 07/08/18 04:40 Labs: Abnormal lab results 07/07/18 07/07/18 07/07/18 Range/Units 13:09 14:29 16:33 WBC (4.5-11.0) K/mm3 Lymphocytes % (Manual) (13.4-35.0) % Monocytes % (Manual) (0.0-7.3) % Lymphocytes # (Manual) (1.2-5.4) K/mm3 Monocytes # (Manual) (0.0-0.8) K/mm3 POC ABG pCO2 (35-45) POC ABG pO2 (80-105) Potassium (3.6-5.0) mmol/L Chloride (98-107) mmol/L Carbon Dioxide (22-30) mmol/L BUN (7-17) mg/dL Creatinine (0.7-1.2) mg/dL Glucose (65-100) mg/dL POC Glucose 197 H 144 H 208 H (70-105) Calcium (8.4-10.2) mg/dL Magnesium (1.7-2.3) mg/dL 07/07/18 07/07/18 07/07/18 Range/Units 16:36 16:46 17:34 WBC (4.5-11.0) K/mm3 Lymphocytes % (Manual) (13.4-35.0) % Monocytes % (Manual) (0.0-7.3) % Lymphocytes # (Manual) (1.2-5.4) K/mm3 Monocytes # (Manual) (0.0-0.8) K/mm3 POC ABG pCO2 16.5 L (35-45) POC ABG pO2 (80-105) Potassium 2.4 L* D (3.6-5.0) mmol/L Chloride 107.3 H (98-107) mmol/L Carbon Dioxide 12 L D (22-30) mmol/L BUN 2 L (7-17) mg/dL Creatinine 0.5 L (0.7-1.2) mg/dL Glucose 208 H (65-100) mg/dL POC Glucose 217 H (70-105) Calcium 7.7 L (8.4-10.2) mg/dL Magnesium (1.7-2.3) mg/dL 07/07/18 07/07/18 07/07/18 Range/Units 18:50 19:51 21:05 WBC (4.5-11.0) K/mm3 Lymphocytes % (Manual) (13.4-35.0) % Monocytes % (Manual) (0.0-7.3) % Lymphocytes # (Manual) (1.2-5.4) K/mm3 Monocytes # (Manual) (0.0-0.8) K/mm3 POC ABG pCO2 (35-45) POC ABG pO2 (80-105) Potassium (3.6-5.0) mmol/L Chloride (98-107) mmol/L Carbon Dioxide (22-30) mmol/L BUN (7-17) mg/dL Creatinine (0.7-1.2) mg/dL Glucose (65-100) mg/dL POC Glucose 202 H 199 H 169 H (70-105) Calcium (8.4-10.2) mg/dL Magnesium (1.7-2.3) mg/dL 07/07/18 07/07/18 07/07/18 Range/Units 21:59 22:12 23:12 WBC (4.5-11.0) K/mm3 Lymphocytes % (Manual) (13.4-35.0) % Monocytes % (Manual) (0.0-7.3) % Lymphocytes # (Manual) (1.2-5.4) K/mm3 Monocytes # (Manual) (0.0-0.8) K/mm3 POC ABG pCO2 (35-45) POC ABG pO2 (80-105) Potassium 2.9 L* D (3.6-5.0) mmol/L Chloride 107.1 H (98-107) mmol/L Carbon Dioxide 12 L (22-30) mmol/L BUN 2 L (7-17) mg/dL Creatinine 0.5 L (0.7-1.2) mg/dL Glucose 165 H (65-100) mg/dL POC Glucose 179 H 191 H (70-105) Calcium 7.5 L (8.4-10.2) mg/dL Magnesium (1.7-2.3) mg/dL 07/08/18 07/08/18 07/08/18 Range/Units 00:05 01:23 02:05 WBC (4.5-11.0) K/mm3 Lymphocytes % (Manual) (13.4-35.0) % Monocytes % (Manual) (0.0-7.3) % Lymphocytes # (Manual) (1.2-5.4) K/mm3 Monocytes # (Manual) (0.0-0.8) K/mm3 POC ABG pCO2 (35-45) POC ABG pO2 (80-105) Potassium (3.6-5.0) mmol/L Chloride (98-107) mmol/L Carbon Dioxide (22-30) mmol/L BUN (7-17) mg/dL Creatinine (0.7-1.2) mg/dL Glucose (65-100) mg/dL POC Glucose 192 H 165 H 112 H (70-105) Calcium (8.4-10.2) mg/dL Magnesium (1.7-2.3) mg/dL 07/08/18 07/08/18 07/08/18 Range/Units 02:42 03:03 04:20 WBC (4.5-11.0) K/mm3 Lymphocytes % (Manual) (13.4-35.0) % Monocytes % (Manual) (0.0-7.3) % Lymphocytes # (Manual) (1.2-5.4) K/mm3 Monocytes # (Manual) (0.0-0.8) K/mm3 POC ABG pCO2 27.4 L (35-45) POC ABG pO2 165 H (80-105) Potassium (3.6-5.0) mmol/L Chloride (98-107) mmol/L Carbon Dioxide (22-30) mmol/L BUN (7-17) mg/dL Creatinine (0.7-1.2) mg/dL Glucose (65-100) mg/dL POC Glucose 119 H 144 H (70-105) Calcium (8.4-10.2) mg/dL Magnesium (1.7-2.3) mg/dL 07/08/18 07/08/18 07/08/18 Range/Units 04:40 04:40 05:49 WBC 11.1 H (4.5-11.0) K/mm3 Lymphocytes % (Manual) 8.0 L (13.4-35.0) % Monocytes % (Manual) 12.0 H (0.0-7.3) % Lymphocytes # (Manual) 0.9 L (1.2-5.4) K/mm3 Monocytes # (Manual) 1.3 H (0.0-0.8) K/mm3 POC ABG pCO2 (35-45) POC ABG pO2 (80-105) Potassium 2.7 L* (3.6-5.0) mmol/L Chloride 108.5 H (98-107) mmol/L Carbon Dioxide 15 L (22-30) mmol/L BUN < 1 L (7-17) mg/dL Creatinine 0.4 L (0.7-1.2) mg/dL Glucose 139 H (65-100) mg/dL POC Glucose 142 H (70-105) Calcium 7.0 L (8.4-10.2) mg/dL Magnesium (1.7-2.3) mg/dL 07/08/18 07/08/18 07/08/18 Range/Units 06:56 08:05 08:20 WBC (4.5-11.0) K/mm3 Lymphocytes % (Manual) (13.4-35.0) % Monocytes % (Manual) (0.0-7.3) % Lymphocytes # (Manual) (1.2-5.4) K/mm3 Monocytes # (Manual) (0.0-0.8) K/mm3 POC ABG pCO2 (35-45) POC ABG pO2 (80-105) Potassium (3.6-5.0) mmol/L Chloride (98-107) mmol/L Carbon Dioxide (22-30) mmol/L BUN (7-17) mg/dL Creatinine (0.7-1.2) mg/dL Glucose (65-100) mg/dL POC Glucose 162 H 107 H (70-105) Calcium (8.4-10.2) mg/dL Magnesium 1.10 L (1.7-2.3) mg/dL 07/08/18 07/08/18 07/08/18 Range/Units 09:08 10:08 11:08 WBC (4.5-11.0) K/mm3 Lymphocytes % (Manual) (13.4-35.0) % Monocytes % (Manual) (0.0-7.3) % Lymphocytes # (Manual) (1.2-5.4) K/mm3 Monocytes # (Manual) (0.0-0.8) K/mm3 POC ABG pCO2 (35-45) POC ABG pO2 (80-105) Potassium (3.6-5.0) mmol/L Chloride (98-107) mmol/L Carbon Dioxide (22-30) mmol/L BUN (7-17) mg/dL Creatinine (0.7-1.2) mg/dL Glucose (65-100) mg/dL POC Glucose 124 H 149 H 161 H (70-105) Calcium (8.4-10.2) mg/dL Magnesium (1.7-2.3) mg/dL 07/08/18 Range/Units 12:09 WBC (4.5-11.0) K/mm3 Lymphocytes % (Manual) (13.4-35.0) % Monocytes % (Manual) (0.0-7.3) % Lymphocytes # (Manual) (1.2-5.4) K/mm3 Monocytes # (Manual) (0.0-0.8) K/mm3 POC ABG pCO2 (35-45) POC ABG pO2 (80-105) Potassium (3.6-5.0) mmol/L Chloride (98-107) mmol/L Carbon Dioxide (22-30) mmol/L BUN (7-17) mg/dL Creatinine (0.7-1.2) mg/dL Glucose (65-100) mg/dL POC Glucose 153 H (70-105) Calcium (8.4-10.2) mg/dL Magnesium (1.7-2.3) mg/dL Medications & Allergies - Medications Allergies/Adverse Reactions: Allergies No Known Allergies Allergy (Verified 07/07/18 05:21) Home Medications: Home Medications Medication Instructions Recorded Confirmed Last Taken Type Cyclobenzaprine [Flexeril] 10 mg PO QHS PRN #20 tablet 06/27/18 Unknown Rx Ibuprofen [Motrin] 800 mg PO Q8HR #30 tablet 06/27/18 Unknown Rx Active Medications: Generic Name Dose Route Start Last Admin Trade Name Freq PRN Reason Stop Dose Admin Acetaminophen 650 mg 07/07/18 16:49 07/08/18 08:12 Tylenol PO 650 mg Q6H PRN Administration Pain, Mild (1-3) Albuterol/Ipratropium 1 ampul 07/07/18 15:00 07/08/18 07:55 Duoneb *Not For Prn Use* IH Not Given Q6HRT [facility] Dextrose 0 ml 07/07/18 06:15 D50w (25gm) Syringe IV PRN PRN Hypoglycemia Vancomycin HCl 1 gm in 250 mls @ 166.667 mls/hr 07/08/18 12:00 07/08/18 12:41 Vancomycin/Ns 1 Gm/250 Ml IV 166.667 mls/hr Q12H [facility] Administration Protocol Piperacillin Sod/Tazobactam Sod 4.5 gm in 100 mls @ 200 mls/hr 07/08/18 14:00 Zosyn/Ns 4.5gm/100ml IV Q8HR [facility] Protocol Potassium Chloride/Sodium Chloride 20 meq in 1,000 mls @ 125 mls/hr 07/08/18 14:00 Ns 0.45/Kcl 20meq IV DIRECT [facility] Insulin Human Isoph/Insulin Regular 10 unit 07/08/18 17:00 Humulin 70/30 SUB-Q BIDDIAB [facility] Insulin Human Regular 0 units 07/08/18 16:30 Humulin R IV QACHS [facility] Protocol Magnesium Sulfate 1 gm 07/08/18 13:00 Magnesium Sulfate IV 07/08/18 13:01 ONCE ONE Potassium Chloride 30 meq 07/08/18 12:00 07/08/18 12:32 K-Dur PO 30 meq QDAY JACQUELINE Administration
[2018-07-08 13:19] LABS: Calcium 7.3 mg/dL (8.4-10.2); Hemolysis Index 2
[2018-07-08 13:20] LABS: BUN/Creatinine Ratio 2; Blood Urea Nitrogen < 1 mg/dL (7-17)
[2018-07-08] MEDS ORDERED: NACL 0.9% 1000 ML 1,000 ML IV SCH (14:00)
[2018-07-08] MEDS ORDERED: NS 0.45/KCL 20MEQ 20 MEQ/1,000 ML BAG IV SCH (14:00)
[2018-07-08] MEDS: ZOSYN/NS 4.5GM/100ML 4.5 GM/100 ML VIAL IV SCH ×2 (15:11→22:21)
[2018-07-08] MEDS ORDERED: MAGNESIUM SULFATE 1 GM in NACL 0.9% 50 ML IV ONE (16:00)
[2018-07-08] MEDS: HumuLIN R IV SCH ×2 (17:00→22:17)
[2018-07-09] MEDS: DUONEB *Not for PRN Use IH SCH ×4 (01:07→20:03)
[2018-07-09 05:06] LABS: Hemoglobin 10.1 gm/dl (10.1-14.3); Mean Corpuscular HGB Conc 34 % (30-34); Mean Corpuscular Volume 84 fl (79-97); Platelet Count 275 K/mm3 (140-440); Red Blood Count 3.58 M/mm3 (3.65-5.03); Red Cell Distribution Width 13.6 % (13.2-15.2)
[2018-07-09] MEDS: VANCOMYCIN/NS 1 GM/250 ML 1 GM/250 ML BAG IV SCH ×3 (05:22→23:05)
[2018-07-09 05:28] LABS: BUN/Creatinine Ratio 10; Blood Urea Nitrogen 4 mg/dL (7-17); Calcium 7.1 mg/dL (8.4-10.2); Hemolysis Index 43
[2018-07-09] MEDS: TYLENOL PO PRN (05:42)
[2018-07-09] MEDS ORDERED: K-DUR PO ONE (06:00)
[2018-07-09 06:16] LABS: Total Cells Counted 100
[2018-07-09 06:17] LABS: Band Neutrophils # (Manual) 0.6 K/mm3; Basophils % (Manual) 0 % (0.0-1.8); Platelet Estimate Consistent w Auto; RBC Morphology Normal
[2018-07-09] MEDS: ZOSYN/NS 4.5GM/100ML 4.5 GM/100 ML VIAL IV SCH (06:58)
[2018-07-09] MEDS: K-DUR PO SCH ×3 (07:22→11:02)
[2018-07-09] MEDS: KCL 10MEQ/100ML 10 MEQ/100 ML BAG IV SCH ×4 (07:23→11:57)
[2018-07-09] MEDS: HumuLIN R IV SCH ×4 (08:23→23:05)
[2018-07-09] MEDS ORDERED: MAGNESIUM SULFATE 4GM/100ML 4 GM/100 ML BAG IV ONE (09:00)
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
--- NOTE | 2018-07-09 11:08 | Progress Note ---
Assessment and Plan DKA - -admitted to ICU, placed on DKA protocol - placed on insulin drip and monitored blood glucose every hour - given IV fluid hydration with bicarbonate drip due to severe acidosis - transitioned to subqu insulin when AG closed, BG much stable, will cont to adjust insulin dose to better control BG - transfer out off ICU SIRS, source of infection unknown - cont abx for now Severe hypokalemia and hypomagnesemia - cont to replete, and monitor Dvt px, lovenox Physical exam: General appearance: Present: no acute distress, well-nourished - EENT Eyes: PERRL, EOM intact ENT: hearing intact, clear oral mucosa Ears: bilateral: normal - Neck Neck: supple, normal ROM - Respiratory Respiratory effort: normal Respiratory: bilateral: CTA - Cardiovascular Rhythm: regular Heart Sounds: Present: S1 & S2. Absent: gallop, rub Extremities: pulses intact, No edema, normal color, Full ROM - Gastrointestinal General gastrointestinal: Present: soft, non-tender, non-distended, normal bowel sounds - Integumentary Integumentary: clear, warm, dry - Musculoskeletal Musculoskeletal: 1, strength equal bilaterally - Neurologic Neurologic: moves all extremities - Psychiatric Psychiatric: memory intact, appropriate mood/affect, intact judgment & insight Subjective Date of service: 07/09/18 Principal diagnosis: DKA Interval history: pt seen and examined remained afebrile denies chest pain, still has cough but feeling better, right jaw pain also improved K still 2.5 Objective - Constitutional Vitals: Vital Signs - 12hr 07/08/18 07/08/18 07/09/18 23:08 23:30 00:00 Temperature Pulse Rate 117 H 111 H 108 H Pulse Rate [ Anterior Bilateral Throughout] Respiratory 31 H 32 H 29 H Rate Respiratory Rate [Anterior Bilateral Throughout] Respiratory Rate [Back] Blood Pressure 120/79 109/72 108/65 O2 Sat by Pulse 96 97 96 Oximetry 07/09/18 07/09/18 07/09/18 00:23 00:30 01:00 Temperature Pulse Rate 108 H 99 H 101 H Pulse Rate [ Anterior Bilateral Throughout] Respiratory 26 H 24 Rate Respiratory Rate [Anterior Bilateral Throughout] Respiratory Rate [Back] Blood Pressure 109/67 108/71 O2 Sat by Pulse Oximetry 07/09/18 07/09/18 07/09/18 01:07 01:16 01:30 Temperature Pulse Rate 111 H Pulse Rate [ 95 H 100 H Anterior Bilateral Throughout] Respiratory 23 Rate Respiratory 25 H 23 Rate [Anterior Bilateral Throughout] Respiratory Rate [Back] Blood Pressure 105/64 O2 Sat by Pulse 99 Oximetry 07/09/18 07/09/18 07/09/18 02:00 02:30 03:00 Temperature Pulse Rate 111 H 105 H 102 H Pulse Rate [ Anterior Bilateral Throughout] Respiratory 26 H 23 26 H Rate Respiratory Rate [Anterior Bilateral Throughout] Respiratory Rate [Back] Blood Pressure 108/67 106/68 104/69 O2 Sat by Pulse 97 Oximetry 07/09/18 07/09/18 07/09/18 03:30 04:00 04:30 Temperature 98.6 F Pulse Rate 103 H 100 H 104 H Pulse Rate [ Anterior Bilateral Throughout] Respiratory 21 25 H 26 H Rate Respiratory Rate [Anterior Bilateral Throughout] Respiratory Rate [Back] Blood Pressure 110/68 106/68 107/68 O2 Sat by Pulse 98 100 Oximetry 07/09/18 07/09/18 07/09/18 05:00 05:30 05:53 Temperature Pulse Rate 101 H 106 H 107 H Pulse Rate [ Anterior Bilateral Throughout] Respiratory 30 H 28 H Rate Respiratory Rate [Anterior Bilateral Throughout] Respiratory 25 H Rate [Back] Blood Pressure 97/60 111/72 O2 Sat by Pulse 100 99 Oximetry 07/09/18 07/09/18 07/09/18 06:00 06:30 07:00 Temperature Pulse Rate 108 H 99 H 100 H Pulse Rate [ Anterior Bilateral Throughout] Respiratory 30 H 29 H 28 H Rate Respiratory Rate [Anterior Bilateral Throughout] Respiratory Rate [Back] Blood Pressure 120/80 115/73 112/73 O2 Sat by Pulse 99 Oximetry 07/09/18 07/09/18 07/09/18 07:30 07:46 08:00 Temperature 98.7 F Pulse Rate 97 H 96 H Pulse Rate [ Anterior Bilateral Throughout] Respiratory 20 25 H Rate Respiratory Rate [Anterior Bilateral Throughout] Respiratory Rate [Back] Blood Pressure 105/70 114/72 O2 Sat by Pulse 99 Oximetry 07/09/18 07/09/18 07/09/18 08:30 08:32 08:42 Temperature Pulse Rate 104 H Pulse Rate [ 110 H 107 H Anterior Bilateral Throughout] Respiratory 25 H Rate Respiratory 20 20 Rate [Anterior Bilateral Throughout] Respiratory Rate [Back] Blood Pressure 109/66 O2 Sat by Pulse 99 Oximetry 07/09/18 07/09/18 09:00 09:30 Temperature Pulse Rate 109 H 119 H Pulse Rate [ Anterior Bilateral Throughout] Respiratory 14 29 H Rate Respiratory Rate [Anterior Bilateral Throughout] Respiratory Rate [Back] Blood Pressure 110/73 105/63 O2 Sat by Pulse 100 96 Oximetry - Labs CBC & Chem 7: 07/09/18 04:25 07/10/18 04:00 Labs: Abnormal lab results 07/08/18 07/08/18 07/08/18 Range/Units 08:05 08:20 09:08 RBC (3.65-5.03) M/mm3 Hct (30.3-42.9) % Seg Neuts % (Manual) (40.0-70.0) % Lymphocytes % (Manual) (13.4-35.0) % Monocytes % (Manual) (0.0-7.3) % Lymphocytes # (Manual) (1.2-5.4) K/mm3 Potassium 2.6 L* (3.6-5.0) mmol/L Carbon Dioxide 19 L (22-30) mmol/L BUN < 1 L (7-17) mg/dL Creatinine 0.5 L (0.7-1.2) mg/dL Glucose 115 H (65-100) mg/dL POC Glucose 107 H 124 H (70-105) Calcium 7.3 L (8.4-10.2) mg/dL Magnesium (1.7-2.3) mg/dL 07/08/18 07/08/18 07/08/18 Range/Units 10:08 11:08 12:09 RBC (3.65-5.03) M/mm3 Hct (30.3-42.9) % Seg Neuts % (Manual) (40.0-70.0) % Lymphocytes % (Manual) (13.4-35.0) % Monocytes % (Manual) (0.0-7.3) % Lymphocytes # (Manual) (1.2-5.4) K/mm3 Potassium (3.6-5.0) mmol/L Carbon Dioxide (22-30) mmol/L BUN (7-17) mg/dL Creatinine (0.7-1.2) mg/dL Glucose (65-100) mg/dL POC Glucose 149 H 161 H 153 H (70-105) Calcium (8.4-10.2) mg/dL Magnesium (1.7-2.3) mg/dL 07/08/18 07/08/18 07/09/18 Range/Units 15:41 21:54 04:25 RBC 3.58 L (3.65-5.03) M/mm3 Hct 30.0 L (30.3-42.9) % Seg Neuts % (Manual) 72.0 H (40.0-70.0) % Lymphocytes % (Manual) 10.0 L (13.4-35.0) % Monocytes % (Manual) 10.0 H (0.0-7.3) % Lymphocytes # (Manual) 0.8 L (1.2-5.4) K/mm3 Potassium (3.6-5.0) mmol/L Carbon Dioxide (22-30) mmol/L BUN (7-17) mg/dL Creatinine (0.7-1.2) mg/dL Glucose (65-100) mg/dL POC Glucose 232 H 223 H (70-105) Calcium (8.4-10.2) mg/dL Magnesium (1.7-2.3) mg/dL 07/09/18 07/09/18 07/09/18 Range/Units 04:25 04:25 07:00 RBC (3.65-5.03) M/mm3 Hct (30.3-42.9) % Seg Neuts % (Manual) (40.0-70.0) % Lymphocytes % (Manual) (13.4-35.0) % Monocytes % (Manual) (0.0-7.3) % Lymphocytes # (Manual) (1.2-5.4) K/mm3 Potassium 2.5 L* (3.6-5.0) mmol/L Carbon Dioxide 17 L (22-30) mmol/L BUN 4 L (7-17) mg/dL Creatinine 0.4 L (0.7-1.2) mg/dL Glucose 221 H (65-100) mg/dL POC Glucose 266 H (70-105) Calcium 7.1 L (8.4-10.2) mg/dL Magnesium 1.60 L (1.7-2.3) mg/dL 07/09/18 Range/Units 07:26 RBC (3.65-5.03) M/mm3 Hct (30.3-42.9) % Seg Neuts % (Manual) (40.0-70.0) % Lymphocytes % (Manual) (13.4-35.0) % Monocytes % (Manual) (0.0-7.3) % Lymphocytes # (Manual) (1.2-5.4) K/mm3 Potassium (3.6-5.0) mmol/L Carbon Dioxide (22-30) mmol/L BUN (7-17) mg/dL Creatinine (0.7-1.2) mg/dL Glucose (65-100) mg/dL POC Glucose 235 H (70-105) Calcium (8.4-10.2) mg/dL Magnesium (1.7-2.3) mg/dL
[2018-07-09] MEDS: LEVAQUIN 750MG/150ML 750 MG/150 ML BAG IV SCH (15:04)
[2018-07-10] MEDS: DUONEB *Not for PRN Use IH SCH ×4 (03:31→20:20)
[2018-07-10 05:00] LABS: BUN/Creatinine Ratio 8; Blood Urea Nitrogen 3 mg/dL (7-17); Calcium 7.6 mg/dL (8.4-10.2); Hemolysis Index 10
[2018-07-10] MEDS: HumuLIN R IV SCH (07:56)
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
[2018-07-10] MEDS: K-DUR PO SCH ×3 (09:29→13:29)
[2018-07-10] MEDS: LEVAQUIN 750MG/150ML 750 MG/150 ML BAG IV SCH (09:30)
[2018-07-10] MEDS: HumuLIN R SUB-Q SCH ×3 (11:30→21:35)
[2018-07-10] MEDS: VANCOMYCIN/NS 1 GM/250 ML 1 GM/250 ML BAG IV SCH (12:00)
--- NOTE | 2018-07-10 15:02 | Progress Note ---
Assessment and Plan DKA - -admitted to ICU, placed on DKA protocol - placed on insulin drip and monitored blood glucose every hour - given IV fluid hydration with bicarbonate drip due to severe acidosis - transitioned to subqu insulin when AG closed, BG much stable now, will increase insulin dose to better control BG - Possible d/c tomorrow SIRS, source of infection unknown, likely from DKA - cont abx for now Severe hypokalemia and hypomagnesemia - cont to replete, and monitor Dvt px, lovenox Physical exam: General appearance: Present: no acute distress, well-nourished - EENT Eyes: PERRL, EOM intact ENT: hearing intact, clear oral mucosa Ears: bilateral: normal - Neck Neck: supple, normal ROM - Respiratory Respiratory effort: normal Respiratory: bilateral: CTA - Cardiovascular Rhythm: regular Heart Sounds: Present: S1 & S2. Absent: gallop, rub Extremities: pulses intact, No edema, normal color, Full ROM - Gastrointestinal General gastrointestinal: Present: soft, non-tender, non-distended, normal bowel sounds - Integumentary Integumentary: clear, warm, dry - Musculoskeletal Musculoskeletal: 1, strength equal bilaterally - Neurologic Neurologic: moves all extremities - Psychiatric Psychiatric: memory intact, appropriate mood/affect, intact judgment & insight Subjective Date of service: 07/10/18 Principal diagnosis: DKA Interval history: pt seen and examined remained afebrile denies chest pain, still has cough but feeling better, right jaw pain also improved K level > 3 today Objective - Constitutional Vitals: Vital Signs - 12hr 07/10/18 07/10/18 07/10/18 03:30 03:31 03:38 Temperature Pulse Rate 111 H Pulse Rate [ 104 H 109 H Anterior Bilateral Throughout] Pulse Rate [ 109 H Bilateral Lower Lobe] Pulse Rate [ From Monitor] Respiratory 27 H Rate Respiratory 12 16 Rate [Anterior Bilateral Throughout] Respiratory 16 Rate [Bilateral Lower Lobe] Blood Pressure 123/82 O2 Sat by Pulse 96 Oximetry 07/10/18 07/10/18 07/10/18 04:00 04:30 05:00 Temperature 99.8 F H Pulse Rate 118 H 106 H 106 H Pulse Rate [ Anterior Bilateral Throughout] Pulse Rate [ Bilateral Lower Lobe] Pulse Rate [ 110 H From Monitor] Respiratory 30 H 29 H 24 Rate Respiratory Rate [Anterior Bilateral Throughout] Respiratory Rate [Bilateral Lower Lobe] Blood Pressure 123/82 116/81 116/81 O2 Sat by Pulse 98 97 96 Oximetry 07/10/18 07/10/18 07/10/18 05:30 06:00 06:30 Temperature Pulse Rate 112 H 113 H 99 H Pulse Rate [ Anterior Bilateral Throughout] Pulse Rate [ Bilateral Lower Lobe] Pulse Rate [ From Monitor] Respiratory 24 26 H 23 Rate Respiratory Rate [Anterior Bilateral Throughout] Respiratory Rate [Bilateral Lower Lobe] Blood Pressure 119/83 119/91 123/85 O2 Sat by Pulse 96 96 96 Oximetry 07/10/18 07/10/18 07/10/18 07:00 07:30 08:00 Temperature 99.3 F Pulse Rate 105 H 102 H 94 H Pulse Rate [ Anterior Bilateral Throughout] Pulse Rate [ Bilateral Lower Lobe] Pulse Rate [ From Monitor] Respiratory 30 H 24 29 H Rate Respiratory Rate [Anterior Bilateral Throughout] Respiratory Rate [Bilateral Lower Lobe] Blood Pressure 117/79 116/81 120/81 O2 Sat by Pulse 97 97 98 Oximetry 07/10/18 07/10/18 07/10/18 08:30 09:00 09:09 Temperature Pulse Rate 117 H 114 H Pulse Rate [ 103 H 102 H Anterior Bilateral Throughout] Pulse Rate [ Bilateral Lower Lobe] Pulse Rate [ From Monitor] Respiratory 20 19 Rate Respiratory 16 20 Rate [Anterior Bilateral Throughout] Respiratory Rate [Bilateral Lower Lobe] Blood Pressure 120/83 112/68 O2 Sat by Pulse 95 96 Oximetry 07/10/18 07/10/18 07/10/18 09:30 10:00 12:05 Temperature 98.8 F Pulse Rate 114 H 106 H 103 H Pulse Rate [ Anterior Bilateral Throughout] Pulse Rate [ Bilateral Lower Lobe] Pulse Rate [ From Monitor] Respiratory 30 H 29 H 15 Rate Respiratory Rate [Anterior Bilateral Throughout] Respiratory Rate [Bilateral Lower Lobe] Blood Pressure 116/78 119/80 O2 Sat by Pulse 97 99 98 Oximetry 07/10/18 07/10/18 07/10/18 12:14 13:13 13:19 Temperature 98.8 F Pulse Rate 103 H Pulse Rate [ 106 H 107 H Anterior Bilateral Throughout] Pulse Rate [ Bilateral Lower Lobe] Pulse Rate [ From Monitor] Respiratory 15 Rate Respiratory 18 18 Rate [Anterior Bilateral Throughout] Respiratory Rate [Bilateral Lower Lobe] Blood Pressure 114/76 O2 Sat by Pulse 98 Oximetry - Labs CBC & Chem 7: 07/09/18 04:25 02/06/19 09:35 Labs: Abnormal lab results 07/09/18 07/09/18 07/10/18 Range/Units 16:22 21:33 04:00 Sodium 135 L (137-145) mmol/L Potassium 3.2 L D (3.6-5.0) mmol/L Carbon Dioxide 17 L (22-30) mmol/L BUN 3 L (7-17) mg/dL Creatinine 0.4 L (0.7-1.2) mg/dL Glucose 206 H (65-100) mg/dL POC Glucose 290 H 213 H (70-105) Calcium 7.6 L (8.4-10.2) mg/dL 07/10/18 07/10/18 Range/Units 07:46 12:41 Sodium (137-145) mmol/L Potassium (3.6-5.0) mmol/L Carbon Dioxide (22-30) mmol/L BUN (7-17) mg/dL Creatinine (0.7-1.2) mg/dL Glucose (65-100) mg/dL POC Glucose 248 H 245 H (70-105) Calcium (8.4-10.2) mg/dL
[2018-07-10] MEDS: TYLENOL PO PRN (19:22)
[2018-07-11] MEDS: DUONEB *Not for PRN Use IH SCH ×3 (02:51→13:31)
[2018-07-11] MEDS: HumuLIN R SUB-Q SCH ×4 (08:25→17:29)
[2018-07-11] MEDS: TYLENOL PO PRN (08:40)
[2018-07-11] MEDS: LEVAQUIN 750MG/150ML 750 MG/150 ML BAG IV SCH (09:15)
[2018-07-11] MEDS: K-DUR PO SCH (09:16)
[2018-07-11] MEDS ORDERED: LEVAQUIN PO SCH (10:00)
[2018-07-11 10:24] LABS: BUN/Creatinine Ratio 10; Blood Urea Nitrogen 5 mg/dL (7-17); Calcium 8.7 mg/dL (8.4-10.2); Hemolysis Index 1
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
--- NOTE | 2018-07-11 18:02 | Vascular Lab Report ---
FINAL REPORT EXAM: VL VENOUS DUPLEX LE BILAT HISTORY: high d dimer,SOB pneumonia TECHNIQUE: Grayscale and color and spectral Doppler ultrasound imaging of the bilateral lower extrem ities was performed for the purposes of assessing for deep venous thrombosis. PRIORS: None. FINDINGS: No evidence of deep venous thrombosis is seen within the common femoral through the posterior tibial and peroneal veins. Normal compression and color flow is seen throughout the venous system of the hua ateral lower extremity. Normal augmentation was seen. IMPRESSION: Negative for bilateral lower extremity deep venous thrombosis.
[2018-07-11 18:42] VITALS: BP 134/90
[2018-07-12] MEDS ORDERED: LEVAQUIN PO SCH (10:00)
== END 2018-07-11 20:30 | disposition home or self-care (01) | DRG 871 ==
LOC: ED 04:28 → CC1 09:25 → 3A 07-10 10:49
PROVIDERS: ADMIT Internal Medicine; ATTEND Internal Medicine
PROC: 4A033R1 Measurement of Arterial Saturation, Peripheral, Percutaneous Approach (ICD-10-PCS; principal; 2018-07-07)
DX: A41.9 Sepsis, unspecified organism (principal); E10.10 Type 1 diabetes mellitus with ketoacidosis without coma; J18.1 Lobar pneumonia, unspecified organism; F41.9 Anxiety disorder, unspecified; F90.9 Attention-deficit hyperactivity disorder, unspecified type; E83.42 Hypomagnesemia; E87.6 Hypokalemia
CPT/HCPCS: 36415; 36600; 71045; 71275; 80048; 81001; 82140; 82803; 82962; 83735; 83880; 84100; 84484; 84703; 85007; 85025; 85379; 87040; 93005; 93010; 93970; 94640; G0378; J0456; J0696; J1815; J1956; J2060; J2543; J3370; J3475; J3480; J7030; J7050; J7070; Q9967